=== PATIENT | male | born 1995 | race Two or more races ===

== ENCOUNTER 2023-12-12 16:17 | Outpatient (RCR) | payer MEDICAID, SELFPAY ==
--- NOTE | 2023-12-12 17:51 | PT.ODS1RPT ---
PT OP Progress/Discharge Note Date of Service: 12/12/23 Progress Note/DC Note Progress Note/Discharge Note: DC Note Patient Information Visit Reasons: Left knee pain Service Continue Service or Discharge: Discharge Status Subjective: Pt is dancing without pain during but afterwards the L knee hurts -09/15 and he can't sleep on the L side. Objective: L knee AROM: Flexion: 125 deg Extension: full Strength: Quads: /5 HS: 05/11 Assessment: Pt has attended 4 therapy sessions over 2 months with progress with strength goals of quads and HS. Pt can do high intensity activities but has pain after consistent with MRI that showed meniscus tear. Progress with therapy goals has plateaued. Plan of care expires on 12/16. Plan: D/C with [facility] Procedure Charges Therapeutic Exercise 30 minutes: Yes
== END 2024-01-06 23:59 | disposition home or self-care (01) ==
LOC: CPTX 16:17
PROVIDERS: PCP Nurse Practitioner; Referring Provider Nurse Practitioner; Visit Provider Nurse Practitioner
DX: M25.562 Pain in left knee (principal); M23.92 Unspecified internal derangement of left knee
CPT/HCPCS: 97110